=== PATIENT | female | born 1995 | race Caucasian/White ===

== ENCOUNTER 2018-06-01 03:22 | Emergency (ER) | payer OTHER ==
[~2018-06-01] VITALS: Ht 165.1 cm; Wt 95.2 kg
[2018-06-01 03:25] VITALS: TEMP 37.1; Ht 165.1 cm; Wt 95.2 kg
[2018-06-01] MEDS ORDERED: NICOTINE 21 MG/24 HR TDSY TD STA (04:02)
[2018-06-01 04:12] LABS: CALCIUM 8.3 mg/dl (8.5-10.1); CREATININE 0.95 mg/dl (0.60-1.20)
[2018-06-01] MEDS ORDERED: POTASSIUM CHLORIDE 10 MEQ TABCR PO STA (04:39)
[2018-06-01] MEDS ORDERED: POTASSIUM CHLORIDE 10 MEQ TABCR ONE (11:25)
[2018-06-01 11:47] VITALS: BP 110/78; PULSE 78; O2SAT 99
--- NOTE | 2018-06-01 15:43 | EMERGENCY ROOM VISIT NOTE ---
ED Visit Note First contact with patient: 09:29 Patient was signed out to me by Landon SCOTT due to change of shift. Please see her dictation for initial history and physical. Patient remained sleeping for most of the morning. She did arouse around 11 AM. She was reassessed. Patient had no chest pain or shortness of breath. No abdominal pain. No nausea vomiting. No headache. No numbness or tingling. She had no visible abrasions. She requested discharge. Recommendations were made to avoid alcohol. Maintain hydration. Tylenol and Motrin every 6 hours as needed for headache or discomfort. She received her oral potassium 40 MEQ as previously prescribed. Alcohol intoxication form was provided. She did remain in the ED with her friend who was being evaluated for suicidal ideation. Current/Historical Medications No Active Prescriptions or Reported Meds Allergies Coded Allergies: Clindamycin (Verified Allergy, Intermediate, RASH, ITCHING, 06/01/18) Vital Signs Date Time Temp Pulse Resp B/P (MAP) Pulse Ox O2 Delivery O2 Flow Rate FiO2 06/01/18 11:47 78 20 110/78 99 06/01/18 11:01 93 25 99/61 100 Room Air 06/01/18 10:03 97 20 95/50 97 Room Air 06/01/18 09:30 86 20 92/56 97 Room Air 06/01/18 09:00 78 16 88/68 98 06/01/18 08:30 72 20 97/53 98 Room Air 06/01/18 07:59 80 20 96/56 100 Room Air 06/01/18 07:04 96 17 103/85 99 Room Air 06/01/18 06:39 73 06/01/18 06:29 106/63 06/01/18 06:27 74 17 95 06/01/18 06:12 65 17 96 06/01/18 05:57 67 18 96 06/01/18 05:52 65 18 96 06/01/18 05:00 88 06/01/18 04:52 77 17 95 Room Air 06/01/18 04:49 91/50 06/01/18 03:39 Room Air 06/01/18 03:25 37.1 87 20 97/60 96 Room Air Laboratory Results 06/01/18 03:39 Test 06/01/18 03:39 Anion Gap 8.0 mmol/L (3-11) Est Creatinine Clear Calc Drug Dose 107.8 ml/min Estimated GFR () 99.9 Estimated GFR (Non- 86.2 BUN/Creatinine Ratio 11.8 (10-20) Calcium Level 8.3 mg/dl (8.5-10.1) Ethyl Alcohol mg/dL 297.0 mg/dl (0-3) Medications Administered Medications (Trade) Dose Ordered Sig/Ivy Route Start Time Stop Time Status Last Admin Dose Admin Nicotine (Nicoderm Cq 21MG Patch) 1 patch NOW STAT TD 06/01/18 04:02 06/01/18 04:04 DC 06/01/18 04:39 1 PATCH Potassium Chloride (Klor-Con M10) 40 meq NOW STAT PO 06/01/18 04:39 06/01/18 04:40 DC 06/01/18 11:29 40 MEQ Departure Information Impression Primary Impression: Alcohol intoxication Additional Impression: Alcohol overdose Dispostion Home / Self-Care Condition GOOD Prescriptions No Active Prescriptions or Reported Meds Forms ALCOHOL OVERDOSE (Under 21 yr), HOME CARE DOCUMENTATION FORM, MOTRIN USE, TYLENOL USE, IMPORTANT VISIT INFORMATION Patient Instructions Alcohol Intoxication - [facility], [facility] Additional Instructions Keep well-hydrated. Tylenol every 6 hours as needed for pain (Maximum 3000 mg Tylenol in 24 hr period). Follow up with family doctor and/or health services as needed. No driving for the next 24 hours. Recommend no alcohol for the next 48 hours and avoid binge drinking in the future. Return to ER sooner for chest pain, abdominal pain, worsening signs or symptoms or as needed. Problem Qualifiers
--- NOTE | 2018-06-01 22:16 | EMERGENCY ROOM VISIT NOTE ---
History First contact with patient: 03:21 Chief Complaint: ALCOHOL OVERDOSE Stated Complaint: ETOH Nursing Triage Summary: Pt's friend was lethargic/unresponsive outside [facility], pt was unsteady on feet and appeared intoxicated and also brought in for eval. Pt alert and oriented x3, voicing no complaints. History of Present Illness The patient is a 22 year old female who presents to the Emergency Room with complaints of alcohol intoxication. Patient has been drinking and has no sober friends. She was stumbling down at the [facility] and the please saw her and she had no super friends and brought her here. She was with her roommate who is highly intoxicated. Patient admits to drinking alcohol. No drugs. Patient denies fall, chest pain, dyspnea, abdominal pain or any other medical complaints. Review of Systems An 10 system review of systems was completed with positives and pertinent negatives listed in the HPI. Past Medical/Surgical History none Social History Smoking Status: Current Every Day Smoker Drug Use: none Marital Status: single Occupation Status: employed Current/Historical Medications No Active Prescriptions or Reported Meds Physical Exam Vital Signs Date Time Temp Pulse Resp B/P (MAP) Pulse Ox O2 Delivery O2 Flow Rate FiO2 06/01/18 11:47 78 20 110/78 99 06/01/18 11:01 93 25 99/61 100 Room Air 06/01/18 10:03 97 20 95/50 97 Room Air 06/01/18 09:30 86 20 92/56 97 Room Air 06/01/18 09:00 78 16 88/68 98 06/01/18 08:30 72 20 97/53 98 Room Air 06/01/18 07:59 80 20 96/56 100 Room Air 06/01/18 07:04 96 17 103/85 99 Room Air 06/01/18 06:39 73 06/01/18 06:29 106/63 06/01/18 06:27 74 17 95 06/01/18 06:12 65 17 96 06/01/18 05:57 67 18 96 06/01/18 05:52 65 18 96 06/01/18 05:00 88 06/01/18 04:52 77 17 95 Room Air 06/01/18 04:49 91/50 06/01/18 03:39 Room Air 06/01/18 03:25 37.1 87 20 97/60 96 Room Air Physical Exam PHYSICAL EXAM: VITALS: Vitals are noted on the nurse's note and reviewed by myself. Vital signs stable. GENERAL: Pleasant female with EtOH odor, in no acute distress, nondiaphoretic, well-developed well-nourished. The patient is visibly intoxicated. SKIN: The skin was without obvious lacerations, abrasions, or rashes. There is no tenting of the skin. Capillary reflex less than 2 seconds. HEENT: Normocephalic, atraumatic. PERRLA. EOMI. Conjunctiva with mild injection without icterus. Tympanic membranes without erythema or effusion bilaterally no hemotympanum. External auditory canals are clear. Nares patent bilaterally. No epistaxis. Oropharynx without erythema or exudate. Uvula midline. Oral mucosal moist. No lymphadenopathy. Neck is supple without cervical spine tenderness. HEART: Regular rate and rhythm without murmurs gallops or rubs. Peripheral pulses 2+. LUNGS: Clear to auscultation bilaterally without wheezes, rales or rhonchi. ABDOMEN: Positive bowel sounds x 4. Normal tympanic percussion. Soft, nontender, without masses or organomegaly. MUSCULOSKELETAL: Gross motor function of the upper and lower extremities intact. The patient has a staggering gait. NEUROLOGIC: The patient is visibly intoxicated. Once they were more sober they were alert and oriented to person place and time. Medical Decision & Procedures Laboratory Results 06/01/18 03:39 Test 06/01/18 03:39 Anion Gap 8.0 mmol/L (3-11) Est Creatinine Clear Calc Drug Dose 107.8 ml/min Estimated GFR () 99.9 Estimated GFR (Non- 86.2 BUN/Creatinine Ratio 11.8 (10-20) Calcium Level 8.3 mg/dl (8.5-10.1) Ethyl Alcohol mg/dL 297.0 mg/dl (0-3) Medications Administered Medications (Trade) Dose Ordered Sig/Ivy Route Start Time Stop Time Status Last Admin Dose Admin Nicotine (Nicoderm Cq 21MG Patch) 1 patch NOW STAT TD 06/01/18 04:02 06/01/18 04:04 DC 06/01/18 04:39 1 PATCH Potassium Chloride (Klor-Con M10) 40 meq NOW STAT PO 06/01/18 04:39 06/01/18 04:40 DC 06/01/18 11:29 40 MEQ ED Course Prior records/ancillary studies reviewed. Triage Nursing notes reviewed. Additional history obtained from EMS and police. The patient's history was concerning for altered mental status and a possible alcohol overdose. Differential diagnosis: Etiologies such as alcohol intoxication, toxicologic, infection, hypoglycemia, electrolyte abnormalities, cardiac sources, intracerebral event, neurologic, as well as others were entertained. Physical examination: As above. The patient is clinically intoxicated. no trauma noted. ER treatment provided: Monitoring Aspiration precautions The patient was frequently reassessed. Diagnostic interpretation by me: Cardiac monitoring did not reveal any evidence of dysrhythmia. The labs revealed hypokalemia. The patient's blood alcohol level was 297 mg/dL. The patient's history was reviewed once they were more coherent and their intoxication cleared. The patient states they have been in good health recently and had no medical complaints. The patient admitted to consuming alcohol. No additional concerning findings were noted. The patient complained of no symptoms to suggest assault. This appears to be consistent with an isolated overdose of alcohol. By the evaluation outlined above emergent etiologies such as trauma, infection, hypoglycemia, electrolyte abnormalities, cardiac sources, intracerebral event, neurologic,as well as others were deemed relatively unlikely. The patient was informed about the findings as listed above. The patient was counseled on the dangers of excessive alcohol use. I gave my usual and customary discussion regarding this issue. All questions were answered and the patient was pleased with the treatment. Return instructions were outlined and the patient was discharged in stable condition once their mental status improved and a safe destination was confirmed. Outpatient prescription management: None Referral: The patient was referred back to their primary care physician for follow-up in 2 to 3 days for a recheck of their current condition. Medical Decision As above Medication Reconcilliation Current Medication List: was personally reviewed by me Blood Pressure Screening Patient's blood pressure: Normal blood pressure Impression Primary Impression: Alcohol use with intoxication Additional Impression: Hypokalemia Departure Information Dispostion Home / Self-Care Condition GOOD Prescriptions No Active Prescriptions or Reported Meds Referrals No Doctor, Assigned (PCP) Patient Instructions My [email or web address] Additional Instructions Keep well-hydrated. Tylenol every 6 hours as needed for pain (Maximum 3000 mg Tylenol in 24 hr period). Follow up with family doctor and/or health services as needed. No driving for the next 24 hours. Recommend no alcohol for the next 48 hours and avoid binge drinking in the future. Return to ER sooner for chest pain, abdominal pain, worsening signs or symptoms or as needed. Problem Qualifiers
== END 2018-06-01 11:54 | disposition home or self-care (01) ==
LOC: EDBD 03:22 → C.EDA 03:23
DX: F10.129 Alcohol abuse with intoxication, unspecified (principal); E87.6 Hypokalemia; F17.210 Nicotine dependence, cigarettes, uncomplicated